=== PATIENT | male | born 1945 | race Caucasian/White ===

== ENCOUNTER → 2016-12-26 | Outpatient (CLI) | payer MEDICARE, BC ==
[~2016-12-26] MED LIST: ALFU10TA3 PO; BACL10TA PO; BIFI4CAP PO; CA C1TAB38 PO; CIPR500T94 PO; DEXT15DR5 EACHEYE; GABA-586 PO; GLIP5TAB10 PO; MULT-246 PO; OMEP20CA9 PO; ONDA4TAB10 SL; TRAM50TA PO
--- NOTE | 2016-12-26 09:47 | RAD ---
Renal ultrasound 12/26/2016 Clinical history: Right flank pain. Technique: A real-time ultrasound examination of both kidneys and the urinary bladder was performed. Multiple images were obtained. Findings: Both kidneys are within normal limits in size and echogenicity. The right kidney measures 9.0 cm in length. The left kidney measures 9.9 cm in length. No focal abnormality of either kidney is seen. There is no evidence of hydronephrosis. No renal calculus is seen. The urinary bladder is distended with urine. No abnormality is seen. Impression: Negative study.
--- NOTE | 2016-12-26 12:50 | RAD ---
EXAM: Frontal chest with bilateral 4 view rib series. HISTORY: Chest and rib pain. COMPARISON: None. FINDINGS: There is a calcified granuloma in the left upper lobe. Hyperinflation is consistent with chronic obstructive pulmonary disease. There is mild pleural-parenchymal scarring in the right greater than left apices. There is no pneumothorax or pleural effusion. Heart is not enlarged. There are no displaced rib fractures bilaterally. IMPRESSION: 1. No displaced rib fractures bilaterally. 2. Hyperinflation suggests chronic obstructive pulmonary disease.
== END | disposition home or self-care (01) ==
LOC: US 09:00
PROVIDERS: ATTEND Family Medicine
DX: R10.9 Unspecified abdominal pain (principal); R07.81 Pleurodynia
CPT/HCPCS: 71111; 76770

== ENCOUNTER 2017-01-05 11:54 | Emergency (ER) | payer MEDICARE, BC ==
[~2017-01-05] VITALS: Ht 182.9 cm; Wt 62.6 kg
[~2017-01-05 11:54] MED LIST changes: -CIPR500T94 PO; -ONDA4TAB10 SL
[2017-01-05] MEDS ORDERED: IV NORMAL SALINE 1000ML BAG 1,000 ML IV SCH (12:37)
[2017-01-05] MEDS ORDERED: ONDANSETRON PF 4 MG/2 ML VIAL. IV ONE (12:45)
--- NOTE | 2017-01-05 12:56 | ED.ADGEN ---
Past Medical History Past Medical History: Diabetes-Type II, P.U.D., Other Additional Past Medical Histor: CHRONIC BACK PAIN,EPIDURAL INJECTIONS,TB TREATMENT Past Surgical History: Other Additional Past Surgical Histo: 12/22 STOMACH & INTESTINES REMOVED R/T PERFORATED ULCER Alcohol Use: None Drug Use: None Adult General Chief Complaint Chief Complaint: ABDOMINAL PAIN HPI HPI Patient is a 71 year old male presents emergency department with a 2 to 3 week history of nausea, increasing weakness, weight loss, "burning" across his chest from elbow to elbow. The patient has only lived in the area for 6-8 months. It sounds like he had been previously worked up for multiple myeloma. He describes to me that he received frequent and regular iron infusions. He notes that nothing seems to exacerbate the pain or to relieve it. At the moment he complains only of nausea. He has had no arnie emesis. Denies any dyspnea. Review of Systems Review of Systems Constitutional: Denies fever or chills. [] Eyes: Denies change in visual acuity. [] HENT: Denies nasal congestion or sore throat. [] Respiratory: Denies cough or shortness of breath. [] Cardiovascular: Denies chest pain or edema. [] GI: Denies abdominal pain, nausea, vomiting, bloody stools or diarrhea. [] : Denies dysuria. [] Musculoskeletal: Denies back pain or joint pain. [] Integument: Denies rash. [] Neurologic: Denies headache, focal weakness or sensory changes. [] Endocrine: Denies polyuria or polydipsia. [] Lymphatic: Denies swollen glands. [] Psychiatric: Denies depression or anxiety. [] Current Medications Current Medications Current Medications Medications (Trade) Dose Ordered Sig/Shen Start Time Stop Time Status Last Admin Dose Admin Iohexol (Omnipaque 300 Mg/ml) 75 ml 1X ONCE 01/05/17 13:00 01/05/17 13:01 DC 01/05/17 13:22 75 ML Ondansetron HCl 4 mg 4 mg 1X ONCE 01/05/17 12:45 01/05/17 12:46 DC 01/05/17 12:59 4 MG Sodium Chloride (Iv Sodium Chloride 0.9% 1000ml Bag) 1,000 ml @ 1,000 mls/hr Q1H 01/05/17 12:37 01/05/17 13:36 DC 01/05/17 12:59 1,000 MLS/HR Allergies Allergies Allergies Coded Allergies Type Severity Reaction Last Updated Verified No Known Drug Allergies 10/19/16 No Physical Exam Physical Exam Constitutional: Well developed, well nourished, no acute distress, non-toxic appearance. [] HENT: Normocephalic, atraumatic, bilateral external ears normal, oropharynx moist, no oral exudates, nose normal. [] Eyes: PERRLA, EOMI, conjunctiva normal, no discharge. [] Neck: Normal range of motion, no tenderness, supple, no stridor. [] Cardiovascular:Heart rate regular rhythm, 2/6 murmur [] Lungs & Thorax: Bilateral breath sounds clear to auscultation [] Abdomen: Bowel sounds normal, soft, no tenderness, no masses, no pulsatile masses. [] Skin: Warm, dry, no erythema, no rash. [] Back: No tenderness, no CVA tenderness. [] Extremities: No tenderness, no cyanosis, no clubbing, ROM intact, no edema. [] Neurologic: Alert and oriented X 3, normal motor function, normal sensory function, no focal deficits noted. [] Psychologic: Affect normal, judgement normal, mood normal. [] Current Patient Data Vital Signs Vital Signs Date Time Temp Pulse Resp B/P Pulse Ox O2 Delivery O2 Flow Rate FiO2 01/05/17 14:02 60 17 148/67 100 Room Air 01/05/17 11:56 97.4 97.4 Lab Values Laboratory Tests Test 01/05/17 12:38 01/05/17 13:58 White Blood Count 6.4x10^3/uL (4.0-11.0) Red Blood Count 3.85x10^6/uL (4.30-5.70) L Hemoglobin 12.0g/dL (13.0-17.5) L Hematocrit 36.6% (39.0-53.0) L Mean Corpuscular Volume 95fL (79-100) Mean Corpuscular Hemoglobin 31pg (25-35) Mean Corpuscular Hemoglobin Concent 33g/dL (31-37) Red Cell Distribution Width 13.1% (11.5-14.5) Platelet Count 194x10^3/uL (140-400) Neutrophils (%) (Auto) 56% (31-73) Lymphocytes (%) (Auto) 26% (24-48) Monocytes (%) (Auto) 11% (0-9) H Eosinophils (%) (Auto) 7% (0-3) H Basophils (%) (Auto) 1% (0-3) Neutrophils # (Auto) 3.6x10^3uL (1.8-7.7) Lymphocytes # (Auto) 1.7x10^3/uL (1.0-4.8) Monocytes # (Auto) 0.7x10^3/uL (0.0-1.1) Eosinophils # (Auto) 0.4x10^3/uL (0.0-0.7) Basophils # (Auto) 0.1x10^3/uL (0.0-0.2) Prothrombin Time 12.8SEC (11.7-14.0) Prothrombin Time INR 1.0 (0.8-1.1) PTT 27SEC (24-38) Sodium Level 142mmol/L (136-145) Potassium Level 4.3mmol/L (3.5-5.1) Chloride Level 104mmol/L (98-107) Carbon Dioxide Level 30mmol/L (21-32) Anion Gap 8 (6-14) Blood Urea Nitrogen 17mg/dL (8-26) Creatinine 1.0mg/dL (0.7-1.3) Estimated GFR (Cockcroft-Gault) 73.2 BUN/Creatinine Ratio 17 (6-20) Glucose Level 112mg/dL (70-99) H Calcium Level 9.6mg/dL (8.5-10.1) Total Bilirubin 0.4mg/dL (0.2-1.0) Aspartate Amino Transferase (AST) 19U/L (15-37) Alanine Aminotransferase (ALT) 23U/L (16-63) Alkaline Phosphatase 63U/L (46-116) Creatine Kinase 28U/L (39-308) L Troponin I Quantitative < 0.017ng/mL (0.000-0.055) BX-Rzo-H-Type Natriuretic Peptide 183pg/mL (0-124) H Total Protein 7.2g/dL (6.4-8.2) Albumin 3.9g/dL (3.4-5.0) Albumin/Globulin Ratio 1.2 (1.0-1.7) Lipase 209U/L (73-393) Urine Collection Type Unknown Urine Color Yellow Urine Clarity Clear Urine pH 7.0 Urine Specific [place] 1.015 Urine Protein Negativemg/dL (NEG-TRACE) Urine Glucose (UA) Negativemg/dL (NEG) Urine Ketones (Stick) Negativemg/dL (NEG) Urine Blood Negative (NEG) Urine Nitrite Negative (NEG) Urine Bilirubin Negative (NEG) Urine Urobilinogen Dipstick 0.2mg/dL (0.2 mg/dL) Urine Leukocyte Esterase Small (NEG) Urine RBC 0/HPF (0-2) Urine WBC 1-4/HPF (0-4) Urine Squamous Epithelial Cells Occ/LPF Urine Bacteria 0/HPF (0-FEW) Urine Mucus Slight/LPF Laboratory Tests 01/05/17 12:38 Laboratory Tests 01/05/17 12:38 EKG EKG EKG interpreted by me, normal sinus rhythm, 59 beats for minute, right bundle- branch block, no ST segment elevation. [] Radiology/Procedures Radiology/Procedures Indication: Chest pain. Technique: Upright portable chest radiograph was obtained and compared to a study from 10 days earlier. Findings: The lungs are clear. They remain hyperinflated. Calcified granuloma is noted. The heart is not enlarged and there is no heart failure. Leads overlie the patient. Impression: No acute thoracic findings. DICTATED and SIGNED BY: NANDINI MCKEON MD DATE: 01/05/17 [id number] CC: PAMELA LARSON MD; NO PCP ~Indication: Right flank pain and abdominal pain for 4 weeks. Technique: Axial images and coronal and sagittal reformatted images are provided. 75 mL of intravenous Omnipaque 300 was administered without complication. No comparison is available. One or more of the following individualized dose reduction techniques were utilized for this examination: 1. Automated exposure control 2. Adjustment of the mA and/or kV according to patient size 3. Use of iterative reconstruction technique Findings: There is atelectasis in the left lung base. There is no pleural effusion. The heart is not enlarged. There is minimal fatty infiltration of the liver. Mild biliary dilation can be within normal limits post cholecystectomy. Common bile duct is 9 mm in diameter. Gallbladder is not visualized and presumed surgically absent. Benign calcification is noted in the spleen. Pancreas is partially fatty replaced. There is no adrenal mass. Kidneys are symmetrically perfused. Aorta is normal caliber with atheromatous disease. There is no small bowel obstruction or mural thickening. There are diverticula in the colon, no findings of diverticulitis. Normal appendix is noted. There is mild bladder distention. Prostate is enlarged. Calcified phleboliths are noted. There are degenerative changes in the spine. Impression: 1. No acute abdominal findings. 2. Mild bladder distention. This may be related to outlet obstruction given enlarged prostate. Correlate with exam findings and PSA value. 3. Minimal fatty infiltration of the liver. 4. Biliary prominence, mild, can be within normal limits post cholecystectomy in a patient of this age. 5. Diverticulosis in the colon without findings of diverticulitis. DICTATED and SIGNED BY: NANDINI MCKEON MD DATE: 01/05/17 1400 CC: PAMELA LARSON MD; NO PCP ~[] Course & Med Decision Making Course & Med Decision Making Pertinent Labs and Imaging studies reviewed. (See chart for details) The patient has a remarkably reassuring workup. He does have an equivocal urinary tract infection with some leukocyte esterase but no bacteria. I discussed all the findings with the patient and his family. At this point we will treat him with Cipro and Zofran for his nausea. He will continue to follow- up with his primary care physician as needed and return emergency Department sooner if he develops new or worsening symptoms. Urinary tract infection Nausea [] Dragon Disclaimer Dragon Disclaimer This electronic medical record was generated, in whole or in part, using a voice recognition dictation system. PAMELA LARSON MD Jan 05, 2017 12:56
[2017-01-05 12:57] LABS: BASO # 0.1 x10^3/uL (0.0-0.2); BASO % 1 % (0-3); EOS % 7 % (0-3); HEMATOCRIT 36.6 % (39.0-53.0); LYMPH # 1.7 x10^3/uL (1.0-4.8); LYMPH % 26 % (24-48); MEAN CORPUSCULAR HEMOGLOBIN 31 pg (25-35); MEAN CORPUSCULAR HGB CONC 33 g/dL (31-37); MEAN CORPUSCULAR VOLUME 95 fL (79-100); MONO % 11 % (0-9); NEUT % 56 % (31-73); PLATELET COUNT 194 x10^3/uL (140-400); RED BLOOD COUNT 3.85 x10^6/uL (4.30-5.70); RED CELL DISTRIBUTION WIDTH 13.1 % (11.5-14.5); WHITE BLOOD COUNT 6.4 x10^3/uL (4.0-11.0)
[2017-01-05 12:58] LABS: CALCIUM 9.6 mg/dL (8.5-10.1); GFR 73.2; POTASSIUM 4.3 mmol/L (3.5-5.1)
[2017-01-05] MEDS ORDERED: IOHEXOL 300 MG/ML 75 ML VIAL IV ONE (13:00)
[2017-01-05 13:05] LABS: ALBUMIN 3.9 g/dL (3.4-5.0); ALBUMIN/GLOBULIN RATIO 1.2 (1.0-1.7); TOTAL BILIRUBIN 0.4 mg/dL (0.2-1.0); TOTAL PROTEIN 7.2 g/dL (6.4-8.2)
[2017-01-05 13:07] LABS: PROTHROMBIN TIME PATIENT 12.8 SEC (11.7-14.0)
--- NOTE | 2017-01-05 13:12 | RAD ---
Indication: Chest pain. Technique: Upright portable chest radiograph was obtained and compared to a study from 10 days earlier. Findings: The lungs are clear. They remain hyperinflated. Calcified granuloma is noted. The heart is not enlarged and there is no heart failure. Leads overlie the patient. Impression: No acute thoracic findings.
[2017-01-05 14:02] VITALS: BP 148/67
[2017-01-05 14:04] LABS: BILIRUBIN,URINE NEGATIVE (NEG); GLUCOSE,URINE NEGATIVE (NEG); NITRITE,URINE NEGATIVE (NEG); PROTEIN,URINE NEGATIVE (NEG-TRACE); UROBILINOGEN,URINE 0.2 mg/dL (0.2 mg/dL)
--- NOTE | 2017-01-05 14:10 | RAD ---
Indication: Right flank pain and abdominal pain for 4 weeks. Technique: Axial images and coronal and sagittal reformatted images are provided. 75 mL of intravenous Omnipaque 300 was administered without complication. No comparison is available. One or more of the following individualized dose reduction techniques were utilized for this examination: 1. Automated exposure control 2. Adjustment of the mA and/or kV according to patient size 3. Use of iterative reconstruction technique Findings: There is atelectasis in the left lung base. There is no pleural effusion. The heart is not enlarged. There is minimal fatty infiltration of the liver. Mild biliary dilation can be within normal limits post cholecystectomy. Common bile duct is 9 mm in diameter. Gallbladder is not visualized and presumed surgically absent. Benign calcification is noted in the spleen. Pancreas is partially fatty replaced. There is no adrenal mass. Kidneys are symmetrically perfused. Aorta is normal caliber with atheromatous disease. There is no small bowel obstruction or mural thickening. There are diverticula in the colon, no findings of diverticulitis. Normal appendix is noted. There is mild bladder distention. Prostate is enlarged. Calcified phleboliths are noted. There are degenerative changes in the spine. Impression: 1. No acute abdominal findings. 2. Mild bladder distention. This may be related to outlet obstruction given enlarged prostate. Correlate with exam findings and PSA value. 3. Minimal fatty infiltration of the liver. 4. Biliary prominence, mild, can be within normal limits post cholecystectomy in a patient of this age. 5. Diverticulosis in the colon without findings of diverticulitis.
[2017-01-05 14:15] LABS: BACTERIA,URINE 0 /HPF (0-FEW); RBC,URINE 0 /HPF (0-2); SQUAMOUS EPITHELIAL CELL,UR OCC /LPF
[2017-01-05] MEDS ORDERED: ONDA4TAB10 SL (15:09)
[2017-01-05] MEDS ORDERED: CIPR500T94 PO (15:09)
--- NOTE | 2017-01-06 11:14 | EKG ---
[facility] [address] [place] [address] Test Date: 2017-01-05 Test Time: 12:41:55 Pat Name: SUZETTE JONES Department: Room: Gender: Youth Associate: : 1945 Requested By: PAMELA LARSON Order Number: [id number] Reading MD: Patricia Joseph Measurements Intervals [place] Rate: 59 P: 90 DE: 188 QRS: 27 QRSD: 136 T: 39 QT: 408 QTc: 408 Interpretive Statements SINUS RHYTHM RIGHT BUNDLE BRANCH BLOCK RVH WITH REPOLARIZATION ABNORMALITY RI6.01 Unconfirmed report No previous ECG available for comparison Electronically Signed On 01-06-2017 15:11:32 CDT by Patricia Joseph
== END 2017-01-05 15:27 | disposition home or self-care (01) ==
LOC: ER 11:54
DX: N39.0 Urinary tract infection, site not specified (principal); R11.0 Nausea; G89.29 Other chronic pain; E11.9 Type 2 diabetes mellitus without complications
CPT/HCPCS: 36415; 71010; 74177; 80053; 81001; 82550; 83690; 83880; 84484; 85027; 85610; 85730; 87086; 93005; 96361; 96374; 99285; J2405; J7030; Q9967

== ENCOUNTER → 2017-02-18 | Outpatient (CLI) | payer MEDICARE, BC ==
[~2017-02-18] MED LIST changes: +CIPR500T94 PO; +ONDA4TAB10 SL
--- NOTE | 2017-02-18 10:40 | KCIC ---
PROCEDURE Limited abdominal ultrasound. HISTORY Right flank pain. TECHNIQUE Real-time ultrasound imaging of the right upper quadrant of the abdomen is performed. COMPARISON None. FINDINGS Common bile duct appears to be dilated measuring 9 millimeters. The visualized pancreas is homogeneous. The right hepatic lobe measures 15.2 cm. Liver is homogeneous in echotexture. There is cholelithiasis. The gallbladder wall is mildly thickened measuring up to 4 millimeters. Sonographic Linton sign is reported as negative. The right kidney length is 10.1 cm. Appearance is normal, no hydronephrosis. IVC is unremarkable. IMPRESSION 1. There is cholelithiasis. Gallbladder wall is mildly thickened. No pericholecystic fluid. Sonographic Linton sign is negative. 2. The common bile duct is dilated. Suggest correlation with laboratory values. MRCP could further evaluate as clinically warranted. Electronically signed by: Bryant Hannon MD (February 18, 2017 10:38:38)
== END | disposition home or self-care (01) ==
LOC: KCIC US 07:56
PROVIDERS: ATTEND Family Medicine
DX: K80.20 Calculus of gallbladder without cholecystitis without obstruction (principal)
CPT/HCPCS: 76705

== ENCOUNTER → 2017-05-15 | Outpatient (CLI) | payer MEDICARE, BC ==
[2017-03-18 07:00] VITALS: BP 129/72
[~2017-05-15] MED LIST changes: +FERR-36 PO; +IOHEXOL 180 MG/ML 10 ML VIAL. ONE; +methylPREDNISolone ACETATE 40 MG/ML VIAL. ONE; +methylPREDNISolone ACETATE 80 MG/ML VIAL. ONE
--- NOTE | 2017-05-16 04:49 | PN ---
DATE: 05/15/2017 PROGRESS NOTE FOR PAIN CLINIC DIAGNOSIS: Cervical radiculopathy with cervical degenerative disk disease. HISTORY OF PRESENT ILLNESS: The patient is a 72-year-old male who returns for followup, status post cervical epidural steroid injection, last seen on 10/22/2016. The patient did very well with near 100% improvement over the past 5-6 months ____ base of the neck and shoulders with a heaviness sensation in the shoulders and upper extremities, right essentially equal to left with slightly more pain on the left side, but reports it can be as high as 9 on a scale of 10, over the last 2-3 weeks, it is low as a 3, currently about a 7 on a scale of 10, again with severe pain, burning, cramping, aching, radiating to the bilateral upper extremities, into mostly posterior upper arms and forearms and hands and some tingling and heaviness in the hands as well, again worse on the left than the right. The patient reports no new motor or sensory deficits, no new bowel or bladder incontinence or other complaints. PAST MEDICAL HISTORY: Significant for type 2 diabetes, hearing loss, gastric ulcers, dizziness, and hearing aids. PREVIOUS SURGERY: Include gastric resection in 1964. MEDICATIONS: Current medications are updated today as is his current review of systems. FAMILY HISTORY: Significant for no major medical problems or conditions that he is aware of. SOCIAL HISTORY: The patient does not smoke, does not drink alcohol, is , lives with his spouse, and lives locally in [place]. PHYSICAL EXAMINATION: VITAL SIGNS: The patient's blood pressure ____, pulse 80, respirations 16, temperature 98.2 degrees Fahrenheit, height is 6 feet, and weight is 140 pounds. GENERAL: The patient is awake, alert, oriented, appropriate, very pleasant demeanor. HEENT: Head shows normocephalic, atraumatic. The patient wears eyeglasses. Extraocular movements are intact and symmetrical. The patient has hearing aids bilaterally. Oral cavity shows mucous membranes are moist and pink. Dentition is intact. NECK: Shows anterior throat supple without palpable lymphadenopathy noted. Swallow reflex is symmetrical. CHEST: Shows normal on inspection. Breath sounds are clear to auscultation bilaterally. HEART: Shows S1 and S2 clear. No murmurs auscultated. ABDOMEN: Soft, nontender, nondistended, flat, and no palpable organomegaly is noted or palpable. BACK: Shows spine grossly midline, normal-appearing cervical lordotic curvature, thoracic kyphotic curvature, and lumbar lordotic curvature mildly flattened. Cervical paraspinous musculature on inspection shows symmetry in the paraspinous musculature without atrophy or hypertrophy, with palpation shows some moderate tenderness in the middle and lower distribution of paraspinous muscles bilaterally and also into the left greater than right superior medial trapezius, but again symmetrical without trigger points without radiation or asymmetry. No tenderness over the spinous processes. The patient shows some mild tenderness in the inferior aspect of the cervical paraspinous and middle trapezius musculature bilaterally, but only diffusely without radiation. The patient has good rotational motion of cervical spine with some mild tenderness with extension, but not with forward flexion, but performs rotation fully right and left as well as extension and flexion without limitation. EXTREMITIES: Upper extremities show deep tendon reflexes 2+ in the biceps and triceps tendons. Motor exam is approximately 4 on a scale 5 with format proofreader strength on the left and 5/5 on the right. Bicep and tricep flexion, however, is 5/5 and equal bilaterally. Peripheral pulses are 2+ in the radial distribution. No peripheral edema is noted. Upper extremities are warm and dry to touch, equal in color and appearance. Shoulder shrug is strong and intact without loss of strength and resistance as is abduction of the shoulder to 90 degrees without loss of strength on resistance with either flexion or extension of the deltoid. Options were discussed with the patient. At this time, the patient's old chart was reviewed as his current medication regimen updated. Current review of systems updated as noted. We will proceed with a cervical epidural steroid injection today. The patient has done very well with these in the past. Risks were again discussed including, but not limited to bleeding, infection, possibility of epidural hematoma, subsequent neurologic compromise, dural puncture, headaches, spinal cord and/or nerve damage, side effects of steroid medication, and poor results regarding pain control. The patient understands and wishes to proceed. The patient will return to clinic in approximately 2 weeks for followup, was counseled on return appointment, activity level and side effects to be aware of. DIAGNOSIS: Cervical radiculopathy with cervical degenerative disk disease. PROCEDURE: Cervical epidural steroid injection, translaminar approach, at the C6-C7 level using C-arm fluoroscopic guidance under sterile prep and drape and using local anesthetic. MEDICATIONS INJECTED: Depo-Medrol 120 mg plus 5 mL of preservative-free normal saline and 2 mL Isovue for contrast. CONDITION AT DISCHARGE: Stable. The patient tolerated the procedure well, had no complications. GRADY URIAS MD DR: GINA/richard JOB#: [id number] / [id number]
== END | disposition home or self-care (01) ==
LOC: PNCL 10:14
PROVIDERS: ATTEND Anesthesiology
DX: M50.10 Cervical disc disorder with radiculopathy, unspecified cervical region (principal); E11.9 Type 2 diabetes mellitus without complications; H91.90 Unspecified hearing loss, unspecified ear; K21.9 Gastro-esophageal reflux disease without esophagitis; F17.200 Nicotine dependence, unspecified, uncomplicated; Z87.11 Personal history of peptic ulcer disease; Z87.39 Personal history of other diseases of the musculoskeletal system and connective tissue; Z86.39 Personal history of other endocrine, nutritional and metabolic disease
CPT/HCPCS: 62321; J1030; J1040

== ENCOUNTER → 2019-05-11 | Outpatient (CLI) | payer OTHER ==
[2017-03-18 07:00] VITALS: BP 129/72
[~2019-05-11] MED LIST changes: -GABA-586 PO; +GABA300C18 PO; +OMEP20CA10 PO; -OMEP20CA9 PO
--- NOTE | 2019-05-12 05:17 | PAIN ---
DATE OF SERVICE: 05/11/2019 PROGRESS NOTE FOR PAIN CLINIC DIAGNOSES: Cervical radiculopathy with cervical degenerative disk disease. HISTORY OF PRESENT ILLNESS: The patient is a 74-year-old male who returns for followup, last seen 08/27/2017. The patient did very well with his cervical injection at that time. It has been over a year and a half, reports the pain has been returning now for about the past 2 months or so, increased in the base of neck and shoulders, upper extremities in the posterior upper arms into the forearms plus posterior and anteriorly into the biceps as well. The patient reports it is aching, radiating, worse with activity, repetitive motions, getting dressed in the morning, using his arms over his head or driving a car. The patient reports it does not awaken him from sleep at night; however, sleeps about 8 hours a night without difficulty. Initially, he was doing much better with distance walking and doing work activities, household activities, and traveling activities without significant increase in pain. The patient reports now the pain is a 9 on a scale of 10 at its worst, 6 on average, 4 at its least and is a 4 today. The patient reports it is aching and radiating in the upper extremities is noted, some in the base of the neck as well, but without headaches. The patient reports no new changes. No new findings. PHYSICAL EXAMINATION: VITAL SIGNS: The patient's blood pressure 105/47, pulse 80, respirations 18, temperature 98.1 degrees Fahrenheit, height 6 feet, weight is 138 pounds. GENERAL: The patient is awake, alert, oriented, appropriate, very pleasant demeanor. HEENT: Head is normocephalic, atraumatic. Extraocular movements are intact and symmetrical. Oral cavity: Mucous membranes moist and pink. Dentition is intact. NECK: Shows anterior throat supple without palpable lymphadenopathy noted. Swallow reflex symmetrical. CHEST: Shows normal on inspection. Breath sounds are clear bilaterally. HEART: Shows S1, S2 clear. No murmurs auscultated. ABDOMEN: Soft, nontender, nondistended. No palpable organomegaly is noted. No rebound or guarding demonstrated. BACK: Shows spine grossly in the midline. Normal appearing thoracic kyphosis. Some slight flattening of lumbar lordotic curvature. Cervical lordotic curvature is maintained and cervical paraspinous muscle shows symmetrical on inspection without asymmetry with palpation shows some mild tenderness in the inferior aspect of the cervical paraspinous musculature as well as into the superior medial and lateral trapezius, but only diffusely without radiation, without trigger points and appears roughly symmetrical. Neck shows full rotational motion of cervical spine, both laterally greater than 45 degrees closer to 90 degrees as well as extension and flexion fully without significant pain reported. EXTREMITIES: Upper extremities show deep tendon reflexes 2+ in the biceps and triceps tendons. Motor exam is strong with 4/5 left manager policy and 5/5 on the right. Bicep and tricep flexion is 5/5 and intact bilaterally. Peripheral pulses are 2+ radial distribution. No peripheral edema is noted bilaterally. Options were discussed with the patient. The patient's old chart was reviewed as well as his current medication regimen updated. Current review of systems updated today as well. We will proceed with a cervical epidural steroid injection today with fluoroscopic guidance. Risks were again discussed including, but not limited to bleeding, infection, possibility of epidural hematoma, subsequent neurologic compromise, dural puncture, headaches, spinal cord and/or nerve damage, side effects of steroid medication and poor results regarding pain control. The patient understands and wished to proceed. The patient will return to clinic in approximately 2 weeks for followup, was counseled on return appointment, activity level and side effects to be aware of. DIAGNOSES: Cervical radiculopathy with cervical degenerative disk disease. PROCEDURE: Cervical epidural steroid injection, translaminar approach C6-C7 level using C-arm fluoroscopic guidance under sterile prep and drape using local anesthetic. MEDICATION INJECTED: A total of 120 mg Depo-Medrol plus 5 mL of preservative-free normal saline and 2 mL of contrast. CONDITION AT DISCHARGE: Stable. The patient tolerated the procedure well and had no complications. GRADY URIAS MD DR: GINA/richard JOB#: [id number] / [id number]
== END ==
LOC: PNCL 13:09
PROVIDERS: ATTEND Anesthesiology
DX: M50.123 Cervical disc disorder at C6-C7 level with radiculopathy (principal)
CPT/HCPCS: 62321; J1030; J1040; Q9965

== ENCOUNTER → 2019-06-01 | Outpatient (CLI) | payer OTHER ==
[2017-03-18 07:00] VITALS: BP 129/72
--- NOTE | 2019-06-01 23:12 | PAIN ---
DATE OF SERVICE: 06/01/2019 PROGRESS NOTE FOR PAIN CLINIC DIAGNOSIS: Cervical radiculopathy with cervical degenerative disk disease. SUBJECTIVE: The patient is a 74-year-old male who returns for followup status post cervical epidural steroid injection x 1. The patient reports about 50-60% improvement in the neck and upper extremity pain. The patient reports it is 7 on a scale of 10 at its worst over the past week, 4 on average, 2 at its least and is 4 today. The patient reports it is aching and dull, shooting at times, but on and off in intensity. The patient reports it does not awaken him from sleep very often, but occasionally will about up to 5-6 hours. He had increased his activity at home, doing household activities with greater ease and comfort, driving with better ease, and traveling with easier ability. The patient reports no new motor or sensory deficits, no new changes. He describes the pain as aching across the back and the shoulders bilaterally and in the base of the neck as well. The patient reports no new deficits or other complaints. PHYSICAL EXAMINATION: VITAL SIGNS: The patient's blood pressure 113/63, pulse 69, respirations 16, temperature is 98.1 degrees Fahrenheit. Height 6 feet 0 inches. Weight is 139 pounds. GENERAL: The patient is awake, alert, oriented, appropriate, very pleasant demeanor. HEENT: Head shows normocephalic, atraumatic. Extraocular movements are intact and symmetrical. Oral cavity, mucous membranes are moist and pink. Dentition is intact. NECK: Shows anterior throat supple without palpable lymphadenopathy noted. Swallow reflex symmetrical. CHEST: Shows normal on inspection. Breath sounds clear to auscultation bilaterally. HEART: Shows S1, S2 clear. No murmurs auscultated. ABDOMEN: Soft, nontender, and nondistended. No palpable organomegaly is noted. No rebound or guarding demonstrated. BACK: Shows spine grossly in the midline. Cervical paraspinous musculature shows symmetrical on inspection with palpation shows some wjwo-bq-jqykqbuw tenderness diffusely in the cervical paraspinous distribution, but only diffusely without radiation in the inferior aspect, also in the superior medial trapezius bilaterally. The patient has good rotational motion of the cervical spine; however, both laterally as well as extension and flexion without significant difficulty. EXTREMITIES: The patient's upper extremities show deep tendon reflexes 2+ in the biceps and triceps tendons. Motor exam is strong with approximately 4 on a scale of 5, but with 4/5 on the left epic kaleidoscope analyst and 5/5 with right epic kaleidoscope analyst, bicep and tricep flexion, however, is 5/5 and equal bilaterally. Peripheral pulses are 2+ in radial distribution. No peripheral edema is noted. Options were discussed with the patient. The patient's old chart was reviewed, as his current medication regimen updated. Current review of systems is updated today as well and we will proceed with a second cervical epidural steroid injection today with fluoroscopic guidance. Risks were again discussed including, but not limited to bleeding, infection, possibility of epidural hematoma, subsequent neurological compromise, dural puncture, headaches, spinal cord and/or nerve damage, side effects of steroid medication, and poor results regarding pain control. The patient understands and wishes to proceed. The patient will return to the clinic in approximately 2 weeks for followup. He was counseled on return appointment, activity level, and side effects to be aware of. DIAGNOSIS: Cervical radiculopathy with cervical degenerative disk disease. PROCEDURE: Cervical epidural steroid injection, translaminar approach C6-C7 level using C-arm fluoroscopic guidance under sterile prep and drape using local anesthetic. MEDICATION INJECTED: A total of 120 mg of Depo-Medrol plus 5 mL of preservative-free normal saline and 2 mL of Isovue for contrast. CONDITION AT DISCHARGE: Stable. The patient tolerated the procedure well, had no complications. GRADY URIAS MD DR: GINA/richard JOB#: [id number] / [id number]
== END ==
LOC: PNCL 13:09
PROVIDERS: ATTEND Anesthesiology
DX: M50.123 Cervical disc disorder at C6-C7 level with radiculopathy (principal)
CPT/HCPCS: 62321; J1030; J1040; Q9965

== ENCOUNTER → 2019-08-21 | Outpatient (CLI) | payer MEDICARE, BC ==
[2017-03-18 07:00] VITALS: BP 129/72
[~2019-08-21] MED LIST changes: -IOHEXOL 180 MG/ML 10 ML VIAL. ONE; -methylPREDNISolone ACETATE 40 MG/ML VIAL. ONE; -methylPREDNISolone ACETATE 80 MG/ML VIAL. ONE
--- NOTE | 2019-08-21 15:17 | CARD ---
MR#: [id number] Date of Study: 08/21/2019 Ordering Physician: ALONA CALDERÓN, Referring Physician: Pasha AG: Fernanda Lopez APPROVED REPORT EXAM: Two-dimensional and M-mode echocardiogram with Doppler and color Doppler. Other Information Quality : GoodHR: 96bpm INDICATION Lower extremitie edema 2D DIMENSIONS RVDd3.2 (2.9-3.5cm)Left Atrium(2D)2.3 (1.6-4.0cm) IVSd1.1 (0.7-1.1cm)Aortic Root(2D)2.4 (2.0-3.7cm) LVDd4.2 (3.9-5.9cm)LVOT Diameter2.3 (1.8-2.4cm) PWd0.8 (0.7-1.1cm)LVDs2.8 (2.5-4.0cm) FS (%) 34.0 %SV50.6 ml LVEF(%)63.3 (>50%) Mitral Valve MV E Qxidmpeb910.4cm/sMV E Peak Gr.4mmHg MV DECEL [id number] A Jwfuxhmn77.5cm/s MV E Mean Gr.1mmHgE/A Ratio1.2 Pulmonary Valve PV Peak Crmqccig697.5cm/s Tricuspid Valve TR P. Scrdcnfh159re/sRAP YULKJYFB0kmGf TR Peak Gr.01wsNjPYTT92vlWv Pulmonary Vein S1 Kkiujfpj92.3cm/sD2 Wzoajcha28.2cm/s LEFT VENTRICLE The left ventricle is normal size. There is normal left ventricular wall thickness. The left ventricu lar systolic function is normal and the ejection fraction is within normal range. The Ejection Fracti on is 55-60%. There is normal LV segmental wall motion. Transmitral Doppler flow pattern is Grade II- pseudonormal filling dynamics. RIGHT VENTRICLE The right ventricle is normal size. There is normal right ventricular wall thickness. The right ventr icular systolic function is normal. ATRIA The left atrium is moderately dilated. The right atrium is moderately dilated. The interatrial septum is intact with no evidence for an atrial septal defect or patent foramen ovale as noted on 2-D or Do ppler imaging. AORTIC VALVE The aortic valve is mildly thickened but opens well. Doppler and Color Flow revealed no significant a ortic regurgitation. There is no significant aortic valvular stenosis. MITRAL VALVE The mitral valve is calcified but opens well. There is no evidence of mitral valve prolapse. There is no mitral valve stenosis. Doppler and Color-flow revealed mild mitral regurgitation. TRICUSPID VALVE The tricuspid valve is normal in structure and function. Doppler and Color Flow revealed mild tricusp id regurgitation with an estimated PAP of 32mmHg. There is no tricuspid valve stenosis. PULMONIC VALVE The pulmonary valve is normal in structure and function. Doppler and Color Flow revealed no pulmonic valvular regurgitation. There is no pulmonic valvular stenosis. GREAT VESSELS The aortic root is normal in size. The ascending aorta is normal in size. The IVC is normal in size a nd collapses >50% with inspiration. PERICARDIAL EFFUSION There is no pleural effusion. There is no evidence of significant pericardial effusion. Critical Notification Critical Value: No <Conclusion> The left ventricular systolic function is normal and the ejection fraction is within normal range. Th e Ejection Fraction is 55-60%. There is normal LV segmental wall motion. Moderate biatrial dilation. Signed by : Rajesh Gallego, Electronically Approved : 08/21/2019 15:16:52
== END | disposition home or self-care (01) ==
LOC: ECHO 14:00
DX: I08.1 Rheumatic disorders of both mitral and tricuspid valves (principal)
CPT/HCPCS: 93306

== ENCOUNTER → 2020-03-23 | Outpatient (CLI) | payer MEDICARE, BC ==
[2017-03-18 07:00] VITALS: BP 129/72
[~2020-03-23] MED LIST changes: -ALFU10TA3 PO; +ALFU10TA4 PO; +IOHEXOL 180 MG/ML 10 ML VIAL. ONE; -OMEP20CA10 PO; +OMEP20CA16 PO; +methylPREDNISolone ACETATE 40 MG/ML VIAL. ONE; +methylPREDNISolone ACETATE 80 MG/ML VIAL. ONE
--- NOTE | 2020-03-23 13:55 | PAIN ---
DATE OF SERVICE: 03/23/2020 PROGRESS NOTE FOR PAIN CLINIC DIAGNOSES: Cervical radiculopathy with cervical degenerative disk disease. HISTORY OF PRESENT ILLNESS: The patient is a 74-year-old male who returns for followup status post cervical epidural steroid injection x 2, last seen on 06/01/2019. The patient did very well with about a 75% improvement initially. The patient reports that until the last week or so, the pain was doing much better, but is now down to about 55% improvement by his estimation and the pain has been returning for the past 2 months or so. He had called for a return appointment today as the pain is increasing in the base of neck and shoulders. The patient reports it is a 9 on a scale of 10 at its worst over the past week, 6 on average and 4 at its least and is a 6 today. The patient reports it is constant, becoming more severe, more aching in the base of the neck and shoulders bilaterally, right and left, slightly more on the right, but present bilaterally. The patient also has a rotator cuff tear, he reports in his left shoulder which is causing some different pain as well, but is being seen by his orthopedist next week. The patient reports no new motor or sensory deficits. Initially, he was doing much better with walking, work activities at home, household activities, traveling with greater ease and comfort, sleeping better at night. The patient reports it still does not generally awaken him from sleep at night. The patient reports no new motor or sensory deficits or changes. PHYSICAL EXAMINATION: VITAL SIGNS: The patient's blood pressure 120/86, pulse 67, respirations 18, temperature 98.5 degrees Fahrenheit, height 6 feet, weight is 136 pounds. GENERAL: The patient is awake, alert, oriented, appropriate, very pleasant demeanor. HEENT: Shows normocephalic, atraumatic. Extraocular movements are intact and symmetrical. Oral cavity: Mucous membranes moist and pink. Dentition is intact. NECK: Shows anterior throat supple without palpable lymphadenopathy noted. Swallow reflex symmetrical. CHEST: Shows normal on inspection. Breath sounds clear to auscultation bilaterally. HEART: Shows S1, S2 clear. No murmurs auscultated. ABDOMEN: Soft, nontender, nondistended. No palpable organomegaly is noted. No rebound or guarding demonstrated. BACK: Shows spine grossly in the midline, normal-appearing cervical lordotic curvatures. There is some increased curvature of the thoracic spine with some increased kyphosis. Cervical paraspinous muscle shows symmetrical on inspection, on palpation shows some moderate tenderness diffusely, but only diffusely without significant radiation. No atrophy or hypertrophy. No asymmetry or trigger points. EXTREMITIES: The patient's upper extremities show deep tendon reflexes at 2+ in the biceps and triceps tendons. Motor exam is strong with 4 on a scale of 5 with left collar trimmer and 5/5 on the right. Bicep and tricep flexion again 4/5 on the left, 5/5 on the right. Peripheral pulses are 2+ radial. No peripheral edema is noted. Options were discussed with the patient. The patient's old chart was reviewed as his current medication regimen updated. Current review of systems updated today as well. We will proceed with a cervical epidural steroid injection today with fluoroscopic guidance. Risks were again discussed including, but not limited to bleeding, infection, possibility of epidural hematoma, subsequent neurological compromise, dural puncture, headaches, spinal cord and/or nerve damage, side effects of steroid medication and poor results regarding pain control. The patient understands and wished to proceed. The patient will return to clinic in approximately 2 weeks for followup. He was counseled on return appointment, activity level and side effects to be aware of. DIAGNOSES: Cervical radiculopathy with cervical degenerative disk disease. PROCEDURE: Cervical epidural steroid injection, translaminar approach at C6-C7 level using C-arm fluoroscopic guidance under sterile prep and drape using local anesthetic. MEDICATION INJECTED: A total of 120 mg Depo-Medrol plus 5 mL of preservative-free normal saline and 2 mL of contrast. CONDITION AT DISCHARGE: Stable. The patient tolerated the procedure well, had no complications. GRADY URIAS MD DR: GINA/richard JOB#: [id number] / [id number]
== END ==
LOC: PNCL 12:48
PROVIDERS: ATTEND Anesthesiology
DX: M50.123 Cervical disc disorder at C6-C7 level with radiculopathy (principal)
CPT/HCPCS: 62321; J1030; J1040; Q9965

== ENCOUNTER 2021-04-02 17:52 | Emergency (ER) | payer MEDICARE, BC ==
[~2021-04-02] VITALS: Ht 182.9 cm; Wt 48.0 kg
[~2021-04-02 17:52] MED LIST changes: -IOHEXOL 180 MG/ML 10 ML VIAL. ONE; -methylPREDNISolone ACETATE 40 MG/ML VIAL. ONE; -methylPREDNISolone ACETATE 80 MG/ML VIAL. ONE
--- NOTE | 2021-04-02 18:29 | PHYS DOC ---
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 Patient son report patient's performed an enema on patient and he had a small hard bowel movement. Patient's last bowel movement was a week ago. Patient states he feels better in the ED, he states his pain is gone. Patient is on pain medicine including pain patches and tramadol. 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 [] Eyes: Denies change in visual acuity. [] HENT: Denies nasal congestion or sore throat. [] Respiratory: Denies cough or shortness of breath. [] Cardiovascular: Denies chest pain or edema. [] GI: Reports abdominal pain, nausea, vomiting, bloody stools or diarrhea. [] : Denies dysuria. [] Musculoskeletal: Denies back pain or joint pain. [] Integument: Denies rash. [] Neurologic: Denies headache, focal weakness or sensory changes. [] Psychiatric: Denies depression or anxiety. 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 [] HENT: Normocephalic, atraumatic, bilateral external ears normal, oropharynx moist, no oral exudates, nose normal. [place] Eyes: PERRLA, EOMI, conjunctiva normal, no discharge. [] Neck: Normal range of motion, no tenderness, supple, no stridor. [] Cardiovascular:Heart rate regular rhythm Lungs & Thorax: Bilateral breath sounds clear to auscultation [] Abdomen: Bowel sounds normal, soft, no tenderness, no masses, no pulsatile masses. [] Skin: Warm, dry, no erythema, no rash. [] Back: No tenderness, no CVA tenderness. [] Extremities: No tenderness, no cyanosis, no clubbing, ROM intact, no edema. [] Neurologic: Alert and oriented X 3, normal motor function, normal sensory function, no focal deficits noted. [] Psychologic: Affect normal, judgement normal, mood normal. 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 (See chart for details) This is a 75-year-old male patient presenting to the ED today with complaints of abdominal pain and constipation. Last bowel movement was 2 hours ago after the performed an enema. Previously the last bowel movement was a week ago. Patient is on pain medicine. Currently denies any pain. Abdomen supine and upright x-rays were obtained, results are not back, patient requesting to be discharged, he was agitated at some point. I talked to him and his son, he states he has no abdominal pain he needs to go home. He is currently on MiraLAX. Recommended he also takes mag citrate, bottle given in the ED. Discharged home. Follow-up with PCP (ERICA YOON APRN) Course & Med Decision Making The chart was reviewed. Care and treatment plan made by midlevel provider. I was available for consult. (ULISSES SANCHEZ DO) Dragon Disclaimer: Dragon Disclaimer: This electronic medical record was generated, in whole or in part, using a voice recognition dictation system. (ERICA YOON APRN) Departure Departure Impression: Primary Impression: Constipation Qualified Codes: K59.00 - Constipation, unspecified Disposition: HOME / SELF CARE / HOMELESS Condition: STABLE Referrals: ALONA CALDERÓN MD (PCP) Follow-up in the course of this week Patient Instructions: Constipation, Adult Additional Instructions: You were evaluated in the emergency room for constipation. Continue taking MiraLAX. Also take a stool softener/docusate sodium. Push fluids, increase your dietary fiber intake, follow-up with your doctor this week ERICA YOON APRN Apr 02, 2021 18:29 ULISSES SANCHEZ DO Apr 03, 2021 20:17
[2021-04-02] MEDS ORDERED: MAGNESIUM CITRATE 296 ML SOLUTION. PO ONE (19:30)
[2021-04-02] MEDS ORDERED: BISACODYL 5 MG TABLET.DR. PO STA (19:30)
[2021-04-02 19:33] VITALS: BP 119/71
--- NOTE | 2021-04-02 20:11 | RAD ---
AP upright supine abdomen x-rays 2 views HISTORY: Constipation. Abdominal pain. FINDINGS: Symmetric nodular densities lung bases likely nipple shadows. No pneumoperitoneum underlyin g the diaphragms on the upright view. Mild volume of stool within the splenic flexure and a moderate volume within the right-sided colon. No dilated bowel loops. Arterial vascular calcifications. Bones are unremarkable. IMPRESSION: No small bowel obstruction. There is a moderate volume of stool within the right-sided co alisson and mild volume of stool within the splenic flexure. Electronically signed by: Ramesh Sanchez MD (04/02/2021 8:08 PM) [facility]
== END 2021-04-02 19:43 | disposition home or self-care (01) ==
LOC: ER 17:52
DX: K59.00 Constipation, unspecified (principal); E11.9 Type 2 diabetes mellitus without complications; K21.9 Gastro-esophageal reflux disease without esophagitis; G89.29 Other chronic pain; Z87.11 Personal history of peptic ulcer disease
CPT/HCPCS: 74021; 99284